=== PATIENT | male | born 2000 | race Caucasian/White ===

== ENCOUNTER 2023-11-06 18:57 | Emergency (ER) | payer OTHER ==
[~2023-11-06 18:57] MED LIST: Lactated Ringers 1,000 ML IV SCH
[2023-11-06] MEDS ORDERED: fentaNYL 50 MCG/ML SDV IVPUSH ONE (18:59)
[2023-11-06] MEDS ORDERED: Diphtheria,Pertussis(Acell),Tetanus Vaccine 0.5 ML Syringe IM ONE (19:16)
[2023-11-06] MEDS ORDERED: ceFAZolin 1 GM in Sodium Chloride 0.9% 50 ML IV ONE (19:26)
[2023-11-06] MEDS ORDERED: Bacitracin Oint 28.35 GM Tube ONE (19:32)
[2023-11-06] MEDS ORDERED: Lactated Ringers 1,000 ML IV SCH (19:56)
== END 2023-11-06 20:51 ==
LOC: MW.ED 18:57
DX: T22.312A Burn of third degree of left forearm, initial encounter (principal); T22.30XA Burn of third degree of shoulder and upper limb, except wrist and hand, unspecified site, initial encounter; T31.10 Burns involving 10-19% of body surface with 0% to 9% third degree burns; T79.9XXA Unspecified early complication of trauma, initial encounter; Z23 Encounter for immunization; W40.1XXA Explosion of explosive gases, initial encounter
CPT/HCPCS: 71045; 82947; 90471; 90715; 96361; 96365; 96375; 99285; A9270; J0690; J3010; J3490; J7120